=== PATIENT | male | born 1945 | race Caucasian/White ===

== ENCOUNTER 2016-11-26 09:42 | Outpatient (CLI) | payer MEDICARE | END 2016-11-26 09:43 | disposition home or self-care (01) | DX: I50.9 Heart failure, unspecified (principal); N18.3 Chronic kidney disease, stage 3 (moderate); I10 Essential (primary) hypertension; R18.8 Other ascites; K70.31 Alcoholic cirrhosis of liver with ascites ==

== ENCOUNTER 2016-12-03 08:53 | Outpatient (CLI) | payer MEDICARE | END 2016-12-03 08:54 | disposition home or self-care (01) | DX: N18.3 Chronic kidney disease, stage 3 (moderate) (principal); I50.9 Heart failure, unspecified; K70.31 Alcoholic cirrhosis of liver with ascites; R18.8 Other ascites ==

== ENCOUNTER 2016-12-10 10:44 | Outpatient (CLI) | payer MEDICARE | END 2016-12-10 10:45 | disposition home or self-care (01) | DX: R41.0 Disorientation, unspecified (principal); N18.3 Chronic kidney disease, stage 3 (moderate); K70.31 Alcoholic cirrhosis of liver with ascites ==

== ENCOUNTER 2016-12-13 08:19 | Outpatient (CLI) | payer MEDICARE | END 2016-12-13 08:20 | disposition home or self-care (01) | DX: N17.9 Acute kidney failure, unspecified (principal); R41.0 Disorientation, unspecified; N18.3 Chronic kidney disease, stage 3 (moderate); K70.31 Alcoholic cirrhosis of liver with ascites ==

== ENCOUNTER 2016-12-13 18:37 | Inpatient (IN) | payer MEDICARE ==
[2016-12-13] MEDS ORDERED: INSULIN REGULAR HUMAN 100 UNIT/1 ML 10 ML MDV SUBQ STA (20:00)
[2016-12-13] MEDS ORDERED: DEXTROSE 50% ABBOJECT 25 GM/50 ML SYRINGE IVP STA (20:00)
[2016-12-13] MEDS ORDERED: SODIUM CHLORIDE 0.9% 1,000 ML IV ONE (20:00)
[2016-12-13] MEDS ORDERED: INSULIN REGULAR HUMAN 100 UNIT/1 ML 10 ML MDV ONE (20:12)
[2016-12-13] MEDS ORDERED: DEXTROSE 50% ABBOJECT 25 GM/50 ML SYRINGE ONE (20:12)
[2016-12-13] MEDS ORDERED: INSULIN REGULAR HUMAN 100 UNIT/1 ML 10 ML MDV IVP STA (20:14)
[2016-12-13] MEDS: SODIUM CHLORIDE 0.9% 1,000 ML IV ONE (21:12)
[2016-12-13] MEDS ORDERED: ONDANSETRON ODT 4 MG TABLET TL PRN (21:34)
[2016-12-13] MEDS ORDERED: MORPHINE 2 MG/ML SYRINGE IVP PRN (21:34)
[2016-12-13] MEDS ORDERED: ONDANSETRON 4 MG/2 ML VIAL IVP PRN (21:34)
[2016-12-13] MEDS ORDERED: LACTULOSE 10 GM/15 ML BOTTLE PO SCH (22:00)
[2016-12-13] MEDS ORDERED: diphenhydrAMINE INJ 50 MG/ML VIAL IVP STA (22:11)
[2016-12-13] MEDS ORDERED: diphenhydrAMINE INJ 50 MG/ML VIAL ONE (22:16)
[2016-12-14] MEDS: SODIUM CHLORIDE 0.9% 1,000 ML IV ONE (00:40)
[2016-12-14] MEDS: PANTOPRAZOLE 40 MG VIAL IVP SCH ×3 (00:40→16:47)
[2016-12-14] MEDS ORDERED: LACTULOSE 10 GM /15 ML UDC ONE (01:17)
[2016-12-14] MEDS: LACTULOSE 10 GM/15 ML BOTTLE PR SCH ×2 (01:41→08:08)
[2016-12-14] MEDS: rifAXIMin 550 MG TABLET PO SCH ×3 (01:42→21:40)
[2016-12-14] MEDS: SODIUM CHLORIDE FLUSH 0.9% 10 ML SYRINGE IVP SCH ×4 (01:43→22:40)
[2016-12-14] MEDS: cloNIDine 0.1 MG TABLET PO SCH ×3 (06:29→21:40)
[2016-12-14] MEDS: SPIRONOLACTONE 25 MG TABLET PO SCH (10:18)
[2016-12-14] MEDS: LOSARTAN 50 MG TABLET PO SCH (10:21)
[2016-12-14] MEDS: METOPROLOL TARTRATE 25 MG TABLET PO SCH (10:23)
[2016-12-14] MEDS: POLYETHYLENE GLYCOL 3350 17 GM PACKET PO SCH (10:24)
[2016-12-14] MEDS: SODIUM CHLORIDE FLUSH 0.9% 10 ML SYRINGE IVP PRN ×2 (11:04→16:47)
[2016-12-14] MEDS: SODIUM CHLORIDE 0.9% 1,000 ML IV SCH ×2 (13:12→23:16)
[2016-12-14] MEDS: LACTULOSE 10 GM/15 ML BOTTLE PO SCH ×2 (15:38→21:40)
[2016-12-14] MEDS ORDERED: amLODIPine 5 MG TABLET PO SCH (23:45)
[2016-12-15] MEDS ORDERED: amLODIPine 5 MG TABLET ONE ×2 (01:27→01:28)
[2016-12-15] MEDS ORDERED: FUROSEMIDE 40 MG TABLET ONE (18:04)
[2016-12-15] MEDS: SODIUM CHLORIDE 0.9% 1,000 ML IV SCH ×3 (18:05→21:56)
[2016-12-15] MEDS: LACTULOSE 10 GM/15 ML BOTTLE PO SCH ×3 (18:05→21:45)
[2016-12-15] MEDS: cloNIDine 0.1 MG TABLET PO SCH ×3 (18:05→21:42)
[2016-12-15] MEDS: PANTOPRAZOLE 40 MG VIAL IVP SCH ×2 (18:06→18:07)
[2016-12-15] MEDS: LOSARTAN 50 MG TABLET PO SCH (18:06)
[2016-12-15] MEDS: POLYETHYLENE GLYCOL 3350 17 GM PACKET PO SCH (18:06)
[2016-12-15] MEDS: METOPROLOL TARTRATE 25 MG TABLET PO SCH (18:06)
[2016-12-15] MEDS: rifAXIMin 550 MG TABLET PO SCH ×2 (18:06→21:42)
[2016-12-15] MEDS: SPIRONOLACTONE 25 MG TABLET PO SCH (18:06)
[2016-12-15] MEDS: SODIUM CHLORIDE FLUSH 0.9% 10 ML SYRINGE IVP SCH ×2 (18:06→18:07)
[2016-12-15] MEDS ORDERED: LACTULOSE 10 GM /15 ML UDC ONE (21:15)
[2016-12-16] MEDS ORDERED: LACTULOSE 10 GM /15 ML UDC ONE (06:10)
[2016-12-16] MEDS: SODIUM CHLORIDE FLUSH 0.9% 10 ML SYRINGE IVP SCH ×4 (06:31→22:19)
[2016-12-16] MEDS: cloNIDine 0.1 MG TABLET PO SCH ×3 (06:33→22:18)
[2016-12-16] MEDS: SODIUM CHLORIDE 0.9% 1,000 ML IV SCH (06:34)
[2016-12-16] MEDS: PANTOPRAZOLE 40 MG VIAL IVP SCH ×2 (06:35→16:04)
[2016-12-16] MEDS: LACTULOSE 10 GM/15 ML BOTTLE PO SCH ×3 (06:35→22:18)
[2016-12-16] MEDS: FUROSEMIDE 40 MG TABLET PO SCH (08:33)
[2016-12-16] MEDS: amLODIPine 5 MG TABLET PO SCH (08:33)
[2016-12-16] MEDS: POLYETHYLENE GLYCOL 3350 17 GM PACKET PO SCH (08:34)
[2016-12-16] MEDS: SPIRONOLACTONE 25 MG TABLET PO SCH (08:34)
[2016-12-16] MEDS: rifAXIMin 550 MG TABLET PO SCH ×2 (08:34→22:18)
[2016-12-16] MEDS: LOSARTAN 50 MG TABLET PO SCH (08:34)
[2016-12-16] MEDS: METOPROLOL TARTRATE 25 MG TABLET PO SCH (08:34)
[2016-12-16] MEDS ORDERED: INSULIN REGULAR HUMAN 100 UNIT/1 ML 10 ML MDV IVP ONE (12:30)
[2016-12-16] MEDS ORDERED: DEXTROSE 50% ABBOJECT 25 GM/50 ML SYRINGE IVP ONE (12:30)
[2016-12-16] MEDS: SODIUM BICARBONATE 100 MEQ in DEXTROSE 5% 1,000 ML IV SCH (12:58)
[2016-12-17] MEDS: SODIUM BICARBONATE 100 MEQ in DEXTROSE 5% 1,000 ML IV SCH ×2 (00:02→10:58)
[2016-12-17] MEDS: cloNIDine 0.1 MG TABLET PO SCH (06:51)
[2016-12-17] MEDS: SODIUM CHLORIDE FLUSH 0.9% 10 ML SYRINGE IVP SCH (06:51)
[2016-12-17] MEDS: PANTOPRAZOLE 40 MG VIAL IVP SCH (06:51)
[2016-12-17] MEDS: SPIRONOLACTONE 25 MG TABLET PO SCH (08:28)
[2016-12-17] MEDS: FUROSEMIDE 40 MG TABLET PO SCH (08:28)
[2016-12-17] MEDS: amLODIPine 5 MG TABLET PO SCH (08:28)
[2016-12-17] MEDS: LOSARTAN 50 MG TABLET PO SCH (08:28)
[2016-12-17] MEDS: POLYETHYLENE GLYCOL 3350 17 GM PACKET PO SCH (08:29)
[2016-12-17] MEDS: METOPROLOL TARTRATE 25 MG TABLET PO SCH (08:29)
[2016-12-17] MEDS: LACTULOSE 10 GM/15 ML BOTTLE PO SCH (08:30)
[2016-12-17] MEDS: rifAXIMin 550 MG TABLET PO SCH (08:51)
== END 2016-12-17 11:25 | disposition home or self-care (01) | DRG 441 ==
DX: K72.90 Hepatic failure, unspecified without coma (principal); K76.7 Hepatorenal syndrome; E87.2 Acidosis; I12.9 Hypertensive chronic kidney disease with stage 1 through stage 4 chronic kidney disease, or unspecified chronic kidney disease; N18.9 Chronic kidney disease, unspecified; I25.2 Old myocardial infarction; F17.200 Nicotine dependence, unspecified, uncomplicated; N17.9 Acute kidney failure, unspecified; I13.0 Hypertensive heart and chronic kidney disease with heart failure and stage 1 through stage 4 chronic kidney disease, or unspecified chronic kidney disease; I50.30 Unspecified diastolic (congestive) heart failure; T47.3X6A Underdosing of saline and osmotic laxatives, initial encounter; Z91.138 Patient's unintentional underdosing of medication regimen for other reason; E87.5 Hyperkalemia; N18.3 Chronic kidney disease, stage 3 (moderate); K70.31 Alcoholic cirrhosis of liver with ascites; I48.91 Unspecified atrial fibrillation; I71.4 Abdominal aortic aneurysm, without rupture; I25.10 Atherosclerotic heart disease of native coronary artery without angina pectoris; Z66 Do not resuscitate; Z95.5 Presence of coronary angioplasty implant and graft; Z87.898 Personal history of other specified conditions; Z85.828 Personal history of other malignant neoplasm of skin; Z87.891 Personal history of nicotine dependence; Z91.81 History of falling; R41.0 Disorientation, unspecified

== ENCOUNTER 2016-12-29 | Outpatient (CLI) | payer MEDICARE | END 2016-12-29 08:13 | disposition home or self-care (01) | DX: E87.5 Hyperkalemia (principal) ==

== ENCOUNTER 2016-12-31 09:40 | Outpatient (CLI) | payer MEDICARE | END 2016-12-31 23:59 | DX: E87.5 Hyperkalemia (principal) ==

== ENCOUNTER 2017-01-01 11:33 | Emergency (ER) | payer MEDICARE ==
[2017-01-01] MEDS ORDERED: SODIUM POLYSTYRENE SULFONATE 15 GM/60 ML BOTTLE PO STA (13:00)
[2017-01-01] MEDS ORDERED: SODIUM POLYSTYRENE SULFONATE 15 GM/60 ML BOTTLE ONE (13:03)
== END 2017-01-01 13:41 | disposition home or self-care (01) ==
DX: E87.5 Hyperkalemia (principal); R00.1 Bradycardia, unspecified; I12.9 Hypertensive chronic kidney disease with stage 1 through stage 4 chronic kidney disease, or unspecified chronic kidney disease; N18.9 Chronic kidney disease, unspecified; F17.200 Nicotine dependence, unspecified, uncomplicated
CPT/HCPCS: 36415; 80048; 93005; 93010; 99284; A9270

== ENCOUNTER 2017-01-02 10:48 | Outpatient (CLI) | payer MEDICARE | END 2017-01-02 10:49 | disposition home or self-care (01) | DX: E87.5 Hyperkalemia (principal) ==

== ENCOUNTER 2017-01-09 08:34 | Outpatient (CLI) | payer MEDICARE | END 2017-01-09 08:35 | disposition home or self-care (01) | DX: N17.9 Acute kidney failure, unspecified (principal); N18.9 Chronic kidney disease, unspecified ==

== ENCOUNTER 2017-01-30 08:25 | Outpatient (CLI) | payer MEDICARE | END 2017-01-30 08:26 | disposition home or self-care (01) | DX: N17.9 Acute kidney failure, unspecified (principal); N18.9 Chronic kidney disease, unspecified; I12.9 Hypertensive chronic kidney disease with stage 1 through stage 4 chronic kidney disease, or unspecified chronic kidney disease; K70.31 Alcoholic cirrhosis of liver with ascites ==

== ENCOUNTER 2017-02-13 18:17 | Outpatient (CLI) | payer MEDICARE | END 2017-02-13 18:18 | disposition short-term general hospital (02) | DX: R25.1 Tremor, unspecified (principal) | CPT/HCPCS: A0170; A0425; A0427 ==

== ENCOUNTER 2017-02-23 08:00 | Outpatient (CLI) | payer MEDICARE | END 2017-02-23 23:59 | disposition home or self-care (01) | DX: K52.1 Toxic gastroenteritis and colitis (principal) ==

== ENCOUNTER 2017-03-25 09:18 | Outpatient (CLI) | payer MEDICARE | END 2017-03-25 23:59 | DX: N18.3 Chronic kidney disease, stage 3 (moderate) (principal) ==

== ENCOUNTER 2017-05-11 08:19 | Outpatient (CLI) | payer MEDICARE ==
--- NOTE | 2017-05-11 20:59 | Ultrasound Report ---
EXAM: AORTIC DOPPLER ULTRASOUND EXAM DATE: 05/11/2017 08:49 AM. CLINICAL HISTORY: Abdominal aortic aneurysm COMPARISON: 06/07/2016 and 05/19/2015. TECHNIQUE: Real-time sonographic imaging of retroperitoneal vascular structures, including color-flow , Doppler flow and spectral analysis was performed by the head sugar reprocess operator. Multiple account representative static images were saved for review. FINDINGS: The abdominal aorta was adequately visualized. AORTA Proximal: Sagittal AP plane measurement 2.7 cm, previously 2.1 cm on 06/07/2016 and 2.5 cm on 015. Mid: Transverse plane measurements 2.2 x 2.2 cm, previously 2.8 x 2.3 cm on 06/07/2016 and 2.2 x 2.2 cm on 05/19/2015. Distal: Transverse plane measurements 4.4 x 4.4 cm, previously 4.2 x 4.0 cm on 06/07/2016 and 4.3 x 4 .3 cm on 05/19/2015. Interval increased mural thrombus, with narrowing of the lumen to 2.8 x 2.5 cm. ILIACS: Right iliac: Transverse plane measurement 1.1 x 1.1 cm, previously 1.0 x 0.9 cm on 06/07/2016 at and 1.0 x 1.0 cm on 05/19/2015. Left iliac: Transverse plane measurement 1.4 x 1.2 cm, previously 1.2 x 1.0 cm on 06/07/2016 and 1.2 x 1.2 cm on 05/19/2015. IMPRESSION: Allowing for differences in technique, no significant interval change in size of distal a bdominal aortic aneurysm. Interval increased mural thrombus. [facility] Referring Provider Line: [phone] SITE ID: [id number]
== END 2017-05-11 08:20 | disposition home or self-care (01) ==
LOC: DI 08:19
PROVIDERS: ATTEND Nurse Practitioner Family
DX: I71.4 Abdominal aortic aneurysm, without rupture (principal)
CPT/HCPCS: 76775

== ENCOUNTER 2018-02-24 08:00 | Outpatient (CLI) | payer MEDICARE ==
[2018-02-24 18:53] LABS: BILIRUBIN,DIRECT 0.1 mg/dL (0.1-0.5); BILIRUBIN,TOTAL 0.6 mg/dL (0.2-1.0); TOTAL PROTEIN 7.5 g/dL (6.7-8.2)
== END 2018-02-24 08:01 | disposition home or self-care (01) ==
LOC: LAB.S 08:00
PROVIDERS: ATTEND Nurse Practitioner Family
DX: K70.31 Alcoholic cirrhosis of liver with ascites (principal)
CPT/HCPCS: 36415; 80076; 82105

== ENCOUNTER 2019-01-05 12:57 | Inpatient (IN) | payer MEDICARE ==
--- NOTE | 2019-01-05 14:10 | XRAY Report ---
Reason: SOA Procedure Date: 01/05/2019 Accession Number: [id number] / [id number] Procedure: XR - Chest 2 View X-Ray CPT Code: 03153 FULL RESULT: EXAM: CHEST RADIOGRAPHY EXAM DATE: 01/05/2019 01:55 PM. CLINICAL HISTORY: SOA. COMPARISON: Chest 1 view 12/13/2016 8:18 PM. TECHNIQUE: 2 views. FINDINGS: Lungs/Pleura: Interval development of a small right pleural effusion. Aerated portions of both lungs are clear with consolidation obscured by the small pleural effusion not evaluated. No pneumothorax is seen. Mediastinum: Heart and mediastinal contour are stable including calcification of the aortic arch. Other: None. IMPRESSION: Interval development of right pleural effusion masking the right lung base. [facility]
[2019-01-05] MEDS ORDERED: ALBUTEROL NEB 2.5 MG/3 ML INH STA (14:34)
--- NOTE | 2019-01-05 14:39 | ED Physician Documentation ---
PD HPI DYSPNEA - Stated complaint Stated Complaint: SOA/ALLERGIC REACTION - Chief complaint Chief Complaint: Resp - History obtained from History obtained from: Patient, Family - History of Present Illness Timing - onset: Last night (Since last night he has been short of breath with clear sputum, there is no associated chest pain or pedal edema. He does have a history of coronary disease status post remote stenting and CHF. He denies any fevers. He has a long history of smoking and quit about a year ago but denies a formal diagnosis of emphysema or COPD.) Recently seen: Clinic (He has a rash on his hands and he was seen in the Dermatology clinic. He was started on permethrin and Bactrim 2 days ago when he feels like the Bactrim may be causative. He is never been on Bactrim before. There is no new rash and he denies facial or oropharyngeal swelling or other symptoms of allergy.) Review of Systems Ten Systems: 10 systems reviewed and negative Constitutional: denies: Fever, Chills Throat: denies: Sore throat Cardiac: denies: Chest pain / pressure, Palpitations, Pedal edema, Calf pain Respiratory: reports: Dyspnea, Cough. denies: Hemoptysis, Wheezing PD PAST MEDICAL HISTORY - Past Medical History Cardiovascular: Congestive heart failure, Hypertension, [place] GI: Cirrhosis Other Past Medical History: on lactulose chronically for liver failure. CKD-4, no HD. - Past Surgical History Past Surgical History: Yes Cardiovascular: AAA - Present Medications Home Medications: Ambulatory Orders Medication Instructions Recorded Confirmed Furosemide [Lasix] 40 mg PO DAILY 12/13/16 01/01/17 Lactulose 15 - 30 ml PO BID 12/13/16 01/01/17 Losartan [Cozaar] 100 mg PO DAILY 12/13/16 01/01/17 Metoprolol Tartrate 12.5 mg PO BID 12/13/16 01/01/17 cloNIDine [Catapres] 0.2 mg PO TID 12/13/16 01/01/17 Albuterol Sulf [Ventolin Hfa 2 puffs INH Q4H PRN 12/14/16 01/01/17 Inhaler] Sod Polystyrene Sulf. [Kayexalate] 15 gm PO Q6H #1 bottle 01/01/17 - Allergies Allergies/Adverse Reactions: Allergies Allergy/AdvReac Type Severity Reaction Status Date / Time hydralazine Allergy Intermediate Rash Verified 01/05/19 13:21 - Social History Does the pt smoke?: Yes Smoking Status: Current every day smoker Does the pt drink ETOH?: Yes Does the pt have substance abuse?: No - Immunizations Immunizations are current?: No PD ED PE NORMAL - Vitals Vital signs reviewed: Yes - General General: Alert and oriented X 3, No acute distress - HEENT HEENT: PERRL, EOMI - Neck Neck: Supple, no meningeal sign, No bony TTP - Cardiac Cardiac: RRR, Other (3 out of 6 decrescendo early systolic murmur heard best at the left midsternal border) - Respiratory Respiratory: Other (Slightly labored, noted to be hypoxic, decreased at the right base and diminished throughout) - Abdomen Abdomen: Soft, Non tender - Back Back: No CVA TTP, No spinal TTP - Derm Derm: Normal color, Warm and dry - Extremities Extremities: No edema, No calf tenderness / cord - Neuro Neuro: Alert and oriented X 3, Normal speech Results - Vitals Vitals: Vital Signs - 24 hr 01/05/19 01/05/19 01/05/19 13:19 14:05 14:46 Temperature 37.2 C Heart Rate 67 62 Respiratory 18 17 Rate Blood Pressure 148/61 H O2 Saturation 90 L 94 01/05/19 15:13 Temperature Heart Rate 65 Respiratory 18 Rate Blood Pressure 138/58 H O2 Saturation 92 Oxygen O2 Source Nasal cannula - EKG (time done) 1318 Rate: Rate (enter#) (62) Rhythm: NSR [place]: Normal Intervals: Prolonged [place] Ischemia: Other (He has LVH with anterior ST elevation due to strain, this is unchanged from prior EKG dated December 13, 2016. At that time he also had inverted T waves in 1, L, V5 and V6 which have since resolved.) - Labs Labs: Laboratory Tests 01/05/19 01/05/19 01/05/19 14:44 14:44 14:44 WBC 7.7 RBC 3.52 L Hgb 11.6 L Hct 34.2 L MCV 97.1 H MCH 32.9 H MCHC 33.8 RDW 14.7 Plt Count 151 MPV 8.7 Neut # (Auto) 6.2 Lymph # (Auto) 0.7 L Cass # (Auto) 0.6 Eos # (Auto) 0.1 Baso # (Auto) 0.1 Absolute Nucleated RBC 0.00 Nucleated RBC % 0.0 Sodium 133 L Potassium 4.3 Chloride 104 Carbon Dioxide 18 L Anion Gap 11.0 BUN 32 H Creatinine 2.9 H Estimated GFR (MDRD) 21 L Glucose 108 H Calcium 8.7 Total Bilirubin 0.9 AST 30 ALT 19 Alkaline Phosphatase 61 Troponin I 0.06 B-Natriuretic Peptide Total Protein 7.4 Albumin 3.6 Globulin 3.8 Albumin/Globulin Ratio 0.9 L Lipase 44 01/05/19 14:44 WBC RBC Hgb Hct MCV MCH MCHC RDW Plt Count MPV Neut # (Auto) Lymph # (Auto) Cass # (Auto) Eos # (Auto) Baso # (Auto) Absolute Nucleated RBC Nucleated RBC % Sodium Potassium Chloride Carbon Dioxide Anion Gap BUN Creatinine Estimated GFR (MDRD) Glucose Calcium Total Bilirubin AST ALT Alkaline Phosphatase Troponin I B-Natriuretic Peptide 1919 H Total Protein Albumin Globulin Albumin/Globulin Ratio Lipase PD MEDICAL DECISION MAKING - ED course ED course: This is a 73-year-old gentleman with history of coronary disease, CHF who presents with inexplicable shortness of breath that started suddenly last night. Could be a combination of COPD or CHF noting his BNP higher than normal. His renal insufficiency is also worse than in the past. He does have a murmur which he thinks is old but it is quite loud. He does not appear fluid overloaded. PE is also on the differential but cannot do a pulmonary angiogram given his renal function. Echo and VQ scan ordered, given persistent hypoxemia call to the hospitalist for admission at 3:40 PM. I called the pharmacist to clarify Lovenox dosing in the setting of renal failure. Departure - Departure Disposition: 66 [facility] DC/Xfer Clinical Impression: Chronic renal failure Qualifiers: Chronic kidney disease stage: stage 4 (severe) Qualified Code(s): N18.4 - Chronic kidney disease, stage 4 (severe) HTN (hypertension) Qualifiers: Hypertension type: essential hypertension Qualified Code(s): I10 - Essential (primary) hypertension COPD (chronic obstructive pulmonary disease) Qualifiers: COPD type: unspecified COPD Qualified Code(s): J44.9 - Chronic obstructive pulmonary disease, unspecified Dyspnea Qualifiers: Dyspnea type: shortness of breath Qualified Code(s): R06.02 - Shortness of breath; R06.00 - Dyspnea, unspecified; R06.01 - Orthopnea Congestive heart failure Qualifiers: Heart failure type: unspecified Heart failure chronicity: acute on chronic Qualified Code(s): I50.9 - Heart failure, unspecified Condition: Serious
[2019-01-05 14:49] LABS: BASOPHILS # (AUTO) 0.1 10^3/uL (0.0-0.1); BASOPHILS % (AUTO) 0.8 %; EOSINOPHILS # (AUTO) 0.1 10^3/uL (0.0-0.7); EOSINOPHILS % (AUTO) 1.6 %; HGB - HEMOGLOBIN 11.6 g/dL (14.0-18.0); LYMPHOCYTES # (AUTO) 0.7 10^3/uL (1.5-3.5); MEAN CORPUSCULAR HEMOGLOBIN 32.9 pg (27.0-31.0); MEAN CORPUSCULAR HGB CONC 33.8 g/dL (32.0-36.0); MEAN CORPUSCULAR VOLUME 97.1 fL (80.0-94.0); MEAN PLATELET VOLUME 8.7 fL (7.4-11.4); MONOCYTES # (AUTO) 0.6 10^3/uL (0.0-1.0); MONOCYTES % (AUTO) 7.8 %; NEUTROPHILS # (AUTO) 6.2 10^3/uL (1.5-6.6); NEUTROPHILS % (AUTO) 80.8 %; PLT - PLATELET COUNT 151 10^3/uL (130-450); RED BLOOD COUNT 3.52 10^6/uL (4.70-6.10); RED CELL DISTRIBUTION WIDTH 14.7 % (12.0-15.0); WHITE BLOOD COUNT 7.7 x10^3/uL (4.8-10.8)
[2019-01-05] MEDS ORDERED: IOVERSOL 320 100 ML VIAL IVP ONE (14:53)
[2019-01-05 15:04] LABS: ALBUMIN 3.6 g/dL (3.2-5.5); ALBUMIN/GLOBULIN RATIO 0.9 (1.0-2.2); BILIRUBIN,TOTAL 0.9 mg/dL (0.2-1.0); CALCIUM 8.7 mg/dL (8.5-10.3); CREATININE 2.9 mg/dL (0.6-1.2); TOTAL PROTEIN 7.4 g/dL (6.7-8.2)
[2019-01-05] MEDS ORDERED: ENOXAPARIN 80 MG/0.8 ML SYRINGE SUBQ STA (15:42)
[2019-01-05] MEDS ORDERED: ACETAMINOPHEN 325 MG TABLET PO PRN (16:10)
[2019-01-05] MEDS ORDERED: ONDANSETRON 4 MG/2 ML VIAL IVP PRN (16:10)
[2019-01-05] MEDS ORDERED: TEMAZEPAM 15 MG CAPSULE PO PRN (16:10)
[2019-01-05] MEDS ORDERED: SODIUM CHLORIDE FLUSH 0.9% 10 ML SYRINGE IVP PRN (16:10)
--- NOTE | 2019-01-05 16:30 | HISTORY & PHYSICAL EXAMINATION ---
Chief Complaint - Chief Complaint Chief Complaint: shortness of breath, allergic reaction History of Present Illness - Admitted From Admitted From:: ED - History Obtained From Records Reviewed: yes History obtained from: chart review, patient Exam Limitations: none - History of Present Illness HPI Comment/Other: Salvador Higgins is a 73-year old male with a past medical history of alcoholic liver disease, hypertension, CAD, AAA, [place], COPD, heavy smoking, numerous skin cancers, depression, nocturia, BPH, social isolation, medical noncompliance and insomnia. History - Past Medical History Cardiovascular: reports: Congestive heart failure, Hypertension, [place] GI: reports: Cirrhosis MRSA Hx?: No Other Past Medical History: on lactulose chronically for liver failure. CKD-4, no HD. - Past Surgical History Cardiovascular: reports: AAA Meds/Allgy - Home Medications Home Medications: Ambulatory Orders Medication Instructions Recorded Confirmed Furosemide [Lasix] 40 mg PO DAILY 12/13/16 01/05/19 Lactulose 15 - 30 ml PO BID 12/13/16 01/05/19 cloNIDine [Catapres] 0.1 mg PO TID 12/13/16 01/05/19 Albuterol Sulf [Ventolin Hfa 2 puffs INH Q4H PRN 12/14/16 01/05/19 Inhaler] Cholecalciferol (Vitamin D3) 2,000 unit PO DAILY 01/05/19 01/05/19 [Vitamin D] amLODIPine [Norvasc] 10 mg PO DAILY 01/05/19 01/05/19 - Allergies Allergies/Adverse Reactions: Allergies Allergy/AdvReac Type Severity Reaction Status Date / Time hydralazine Allergy Intermediate Rash Verified 01/05/19 13:21 Exam - Vital Signs Vital Signs: Vital Signs x48h Temp Pulse Resp BP Pulse Ox 01/05/19 16:17 36.9 C 66 18 136/63 H 92 01/05/19 15:13 65 18 138/58 H 92 01/05/19 14:46 62 17 01/05/19 14:05 94 01/05/19 13:19 37.2 C 67 18 148/61 H 90 L Conclusion/Plan - Problem List (2) COPD (chronic obstructive pulmonary disease) Qualifiers: COPD type: unspecified COPD Qualified Code(s): J44.9 - Chronic obstructive pulmonary disease, unspecified - Lab Results Fish Bones: 01/05/19 14:44 01/05/19 14:44 Core Measures - Anticipated LOS I expect patient to be DC'd or transferred within 96 hours.: Yes - DVT/VTE - Prophylaxis VTE/DVT Device ordered at admit?: Yes
[2019-01-05] MEDS ORDERED: IPRATROPIUM/ALBUTEROL 3 ML NEB INH PRN (18:16)
[2019-01-05] MEDS ORDERED: SODIUM CHLORIDE 0.9% 500 ML IV ONE (18:16)
[2019-01-05] MEDS ORDERED: guaiFENesin/CODEINE 5 ML UDC PO PRN (18:17)
[2019-01-05] MEDS: SODIUM CHLORIDE FLUSH 0.9% 10 ML SYRINGE IVP SCH (19:09)
[2019-01-05] MEDS: IPRATROPIUM/ALBUTEROL 3 ML NEB INH SCH (20:48)
[2019-01-05] MEDS ORDERED: FUROSEMIDE 40 MG/4 ML VIAL IVP STA (20:49)
--- NOTE | 2019-01-05 20:55 | XRAY Report ---
Reason: worsening dyspnea Procedure Date: 01/05/2019 Accession Number: [id number] / [id number] Procedure: XR - Chest 1 View X-Ray CPT Code: 34717 FULL RESULT: EXAM: CHEST RADIOGRAPHY EXAM DATE: 01/05/2019 08:45 PM. CLINICAL HISTORY: Worsening dyspnea. COMPARISON: CHEST 2 VIEW 01/05/2019 1:43 PM. TECHNIQUE: 1 view. FINDINGS: Lungs/Pleura: Mild/moderate pulmonary edema, increased. No consolidation. No enlarging pleural effusion. No pneumothorax. Mediastinum: Prominent cardiac silhouette. Other: ECG leads overlie the chest. IMPRESSION: Increased pulmonary edema. [facility]
[2019-01-05] MEDS: methylPREDNISolone SUCCINATE 40 MG/ML VIAL IVP SCH (21:28)
--- NOTE | 2019-01-05 22:46 | HISTORY & PHYSICAL EXAMINATION ---
Chief Complaint - Chief Complaint Chief Complaint: acute dyspnea History of Present Illness - Admitted From Admitted From:: [facility] ED - History Obtained From Records Reviewed: yes History obtained from: patient - History of Present Illness HPI Comment/Other: Patient seen at 1910pm on 01/05/19 Patient is a 73 y/o male with PMedHx significant for CAD s/p PCI with stent, CHF, Liver cirrhosis, AAA and CKD who presented to the ED with acute dyspnea. Onset of symptoms was 01/03/19 when he got up to go to the bathroom at night. Ambulating seems to make his symptoms worse. Likewise going from a laying to a sitting position makes it worse. He denies chest pain or wheezing. He sleeps with his bed flat at night and does not use oxygen at home. He denies abd pain, nausea, vomiting or fever. He saw his buckle coverer 2 days ago and was prescribed bactrim. He initially thought his symptoms were due to the medication but they are intermittent, po sitional and lasting a few minutes. In the ED work up revealed a BNP of 1919, progression of MR on 2D echo from trace-mild to moderate-severe, hypokinesis of the basal inferior wall and mid inferolateral wall segment and an EF of 50-55% . During exam, patient became suddenly dysneic with his O2Sat dropping to 90% on N/C. He was given a breathing treatment. Repeat chest xray showed worsening pulmonary edema. He was given 40mg IV of lasix. Within an hour or receiving lasix, he stood up to urinate and suddenly became very dyspneic again. He is being admitted for further work up. History - Past Medical History Cardiovascular: reports: Congestive heart failure, Hypertension, [place] Respiratory: reports: Shortness of breath GI: reports: Cirrhosis : reports: Nocturia HEENT: reports: Other Psych: reports: Depression, Anxiety MRSA Hx?: No Other Past Medical History: on lactulose chronically for liver failure. CKD-4, no HD. AAA - Past Surgical History General: reports: Other (hernia (unspecified), skin cancer excision on head) Cardiovascular: reports: Coronary stent, AAA HEENT: reports: Cataracts, Tonsil/Adenoidectomy - Family & Social History Family History Comment/Other: Extensive family history of malignancy. mother: breast cancer. father: from Parkinson's Living arrangement: At home - Substance History Use: Uses substance without health or social issues: NONE (quit smoking 2018. Had 1ppd X 58 yrs. Quit drinking 4 years ago. No illicit drugs) - POLST Patient has POLST: No POLST Status: DNR Meds/Allgy - Home Medications Home Medications: Ambulatory Orders Medication Instructions Recorded Confirmed Furosemide [Lasix] 40 mg PO DAILY 12/13/16 01/05/19 Lactulose 15 - 30 ml PO BID 12/13/16 01/05/19 cloNIDine [Catapres] 0.1 mg PO TID 12/13/16 01/05/19 Albuterol Sulf [Ventolin Hfa 2 puffs INH Q4H PRN 12/14/16 01/05/19 Inhaler] Cholecalciferol (Vitamin D3) 2,000 unit PO DAILY 01/05/19 01/05/19 [Vitamin D] amLODIPine [Norvasc] 10 mg PO DAILY 01/05/19 01/05/19 - Allergies Allergies/Adverse Reactions: Allergies Allergy/AdvReac Type Severity Reaction Status Date / Time hydralazine Allergy Intermediate Rash Verified 01/05/19 13:21 Review of Systems - Constitutional Constitutional: reports: Chills. denies: Fever, Diaphoresis, Night sweats - Eyes Eyes: denies: Blurred vision, Vision loss, Dipolpia - Ears, Nose & Throat Ears, Nose & Throat: denies: Vertigo, Sore throat, Hoarseness - Cardiovascular Cariovascular: reports: Edema, Exertional dyspnea. denies: Palpitations, Chest pain, Lightheadedness, Syncope - Respiratory Respiratory: reports: Orthopnea, SOB at rest, SOB with exertion. denies: Cough, Wheezing - Gastrointestinal Gastrointestinal: denies: Abdominal pain, Abdominal distention, Constipation, Diarrhea, Nausea, Vomiting - Genitourinary Genitourinary: denies: Dysuria, Frequency, Urgency, Hematuria - Musculoskeletal Musculoskeletal: denies: Muscle pain, Back pain, Stiffness - Integumentary Integumentary: reports: Rash, Pruritis. denies: Lesions, Dryness - Neurological Neurological: denies: General weakness, Headache, Dizziness, Numbness - Psychiatric Psychiatric: denies: Depression, Anxiety - Endocrine Endocrine: denies: Polyuria, Polydypsia - Hematologic/Lymphatic Hematologic/Lymphatic: denies: Anemia, Petechiae Prior Level of Functionality: He is independent of activities of daily living. 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 Exam - Vital Signs Vital Signs: Vital Signs x48h Temp Pulse Pulse Resp BP BP Pulse Ox 01/05/19 20:21 94 01/05/19 20:04 36.7 C 66 20 148/60 H 95 01/05/19 17:59 36.8 C 79 20 95 01/05/19 17:19 36.8 C 79 20 156/46 H 95 01/05/19 16:17 36.9 C 66 18 136/63 H 92 01/05/19 15:13 65 18 138/58 H 92 01/05/19 14:46 62 17 - Physical Exam General Appearance: positive: Alert, Moderate distress (respiratory) Eyes Bilateral: positive: Normal inspection, PERRL, EOMI ENT: positive: ENT inspection nml Neck: positive: Nml inspection, No JVD, Trachea midline Respiratory: positive: Chest non-tender, Breath sounds nml, Rales (especially on right lower lung). negative: No respiratory distress, Wheezes Cardiovascular: positive: Regular rate & rhythm, Diastolic murmur Abdomen: positive: Non-tender, No organomegaly, Nml bowel sounds, No distention Back: positive: Nml inspection Skin: positive: Other (thin skin with several pale appearing patches. Bruising noted especially on upper extremities) Extremities: positive: Pedal edema (trace to +1) Neurologic/Psychiatric: positive: Oriented x3 Conclusion/Plan - Problem List (1) Congestive heart failure Conclusion/Plan: Likely symptomatic manifestation of severe Mitral regurgitation 2D echo showed ERO of 0.42centimeter cubed and a regurgitant volume of 78ml EF 50-55%. Lasix 40mg IV given On lasix 40mg po at home Trend troponin r/o PE Patient give one dose of lovenox 75mg subq V/Q scan pending for the am Qualifiers: Heart failure type: unspecified Heart failure chronicity: acute on chronic Qualified Code(s): I50.9 - Heart failure, unspecified (2) COPD (chronic obstructive pulmonary disease) Conclusion/Plan: On solumedrol tid and duoneb prn Qualifiers: COPD type: unspecified COPD Qualified Code(s): J44.9 - Chronic obstructive pulmonary disease, unspecified (3) HTN (hypertension) Conclusion/Plan: On amlodipine and clonidine Qualifiers: Hypertension type: essential hypertension Qualified Code(s): I10 - Ess ential (primary) hypertension (4) Liver cirrhosis Conclusion/Plan: Likely 2/2 alcohol with Hx of hepatic encephalopathy. On lactulose (5) Chronic renal failure Conclusion/Plan: ?Worsened by heart failure Patient given lasix for heart failure Expect improvement. Will monitor renal function. If worsens will consult nephrology Qualifiers: Chronic kidney disease stage: stage 4 (severe) Qualified Code(s): N18.4 - Chronic kidney disease, stage 4 (severe) - Lab Results Fish Bones: 01/05/19 14:44 01/05/19 14:44 Core Measures - Anticipated LOS I expect patient to be DC'd or transferred within 96 hours.: Yes - DVT/VTE - Prophylaxis VTE/DVT Device ordered at admit?: Yes VTE/DVT Prophylaxis med ordered at admit?: Yes
--- NOTE | 2019-01-06 00:17 | Ultrasound Report ---
Reason: aortic turbulance Procedure Date: 01/05/2019 Accession Number: [id number] / [id number] Procedure: US - Carotid Doppler Complete CPT Code: FULL RESULT: EXAM: BILATERAL CAROTID AND VERTEBRAL ARTERY DUPLEX DOPPLER ULTRASOUND: EXAM DATE: 01/05/2019 11:40 PM CLINICAL HISTORY: Aortic turbulence. COMPARISON: CV 05/02/2015 12:47 PM. TECHNIQUE: Grayscale imaging, color Doppler, and duplex spectral Doppler were used to evaluate the carotid and vertebral arteries bilaterally. Static images were obtained. FINDINGS: There is bilateral calcified plaquing, producing bilateral hemodynamically significant stenoses of the proximal internal carotid arteries, new from previous. Visualization is limited by calcified plaquing. Normal antegrade flow is present in bilateral vertebral arteries. VELOCITIES: Right CCA mid: PSV 93.5 cm/sec CCA dist: PSV 167.5 cm/sec ICA prox: PSV 381.3 cm/sec, EDV 48 cm/sec ICA mid: PSV 149.6 cm/sec, EDV 4.6 cm/sec ICA dist: PSV 81.5 cm/sec, EDV 0.0 cm/sec ECA: PSV 168.9 cm/sec Vert: PSV 164 cm/sec ICA/CCA: 2.3 Left CCA mid: PSV 115.5 cm/sec CCA dist: PSV 128.5 cm/sec ICA prox: PSV 460.6 cm/sec, EDV 0.0 cm/sec ICA mid: PSV 175.1 cm/sec, EDV 0.0 cm/sec ICA dist: PSV 98.1 cm/sec, EDV 19.6 cm/sec ECA: PSV 344 cm/sec Vert: PSV 263.3 cm/sec ICA/CCA: 3.6 ICA diameter stenosis: Right: 50-69% by velocity criteria. Left: 50-69% by velocity criteria. IMPRESSION: 1. Bilateral calcified carotid artery plaquing. 2. Elevated velocities and ratios, compatible with 50-69% luminal diameter stenosis by velocity criteria bilaterally. Visualization is limited by calcified plaquing. 3. Normal antegrade flow is present in bilateral vertebral arteries. General Recommendations: Stenosis =50% ICA - Follow-up ultrasound 6-12 months Stenosis <50% ICA - High Risk Patient with plaque - Follow-up ultrasound 1-2 years Normal Study but High Risk Patient - Follow-up ultrasound 3-5 years Management recommendations and diagnostic criteria are based on current IAC endorsed standards in Carotid Artery Stenosis: Grayscale and Doppler Ultrasound Diagnosis. Validated velocity measurements with angiographic measurements and velocity criteria are extrapolated from diameter data as defined by the Society of Radiologists in Ultrasound Consensus Conference Radiology 2003; 229;340-346. [facility]
[2019-01-06] MEDS: SODIUM CHLORIDE FLUSH 0.9% 10 ML SYRINGE IVP SCH ×2 (01:04→08:59)
[2019-01-06] MEDS: methylPREDNISolone SUCCINATE 40 MG/ML VIAL IVP SCH (06:23)
--- NOTE | 2019-01-06 06:39 | PROVIDER PROGRESS NOTE ---
Current Medications - Current Medications Current Medications: Active Medications Acetaminophen (Tylenol) 650 mg PO Q4HR PRN PRN Reason: Pain 1 to 4 Albuterol/Ipratropium (Duoneb) 3 ml INH Q4HR PRN PRN Reason: Wheezing Last Admin: 01/06/19 01:55 Dose: 3 ml Albuterol/Ipratropium (Duoneb) 3 ml INH RTQID [facility] Last Admin: 01/05/19 20:48 Dose: 3 ml Enoxaparin Sodium (Lovenox) 30 mg SUBQ DAILY [facility] Guaifenesin/Codeine Phosphate (Robitussin Ac) 5 ml PO Q6HR PRN PRN Reason: Cough Last Admin: 01/06/19 02:54 Dose: 5 ml Ondansetron HCl (Zofran Inj) 4 mg IVP Q6HR PRN PRN Reason: Nausea / Vomiting Pantoprazole Sodium (Protonix) 40 mg PO BIDAC [facility] Last Admin: 01/06/19 06:24 Dose: 40 mg Polyethylene Glycol (Miralax) 17 gm PO DAILY [facility] Sodium Chloride (Normal Saline Flush 0.9%) 10 ml IVP PRN PRN PRN Reason: NEEDED PER PROVIDER ORDERS Last Admin: 01/05/19 21:29 Dose: 10 ml Sodium Chloride (Normal Saline Flush 0.9%) 10 ml IVP 0100,0900,1700 [facility] Last Admin: 01/06/19 01:04 Dose: 10 ml Temazepam (Restoril) 15 mg PO QPM PRN PRN Reason: Insomnia Furosemide [Lasix] 40 mg PO DAILY 12/13/16 Lactulose 15 - 30 ml PO BID 12/13/16 cloNIDine [Catapres] 0.1 mg PO TID 12/13/16 Albuterol Sulf [Ventolin Hfa Inhaler] 2 puffs INH Q4H PRN 12/14/16 Cholecalciferol (Vitamin D3) [Vitamin D] 2,000 unit PO DAILY 01/05/19 amLODIPine [Norvasc] 10 mg PO DAILY 01/05/19 Objective - Vital Signs/Intake & Output Vital Signs: Vital Signs x48h Temp Pulse Pulse Resp BP Pulse Ox 01/06/19 05:00 37 C 71 20 141/48 H 96 01/06/19 01:55 72 18 02/19/19 00:08 37 C 74 18 163/54 H 92 Intake & Output: Intake & Output 01/03/19 01/04/19 01/05/19 01/06/19 23:59 23:59 23:59 23:59 Intake Total 820 Output Total 150 175 Balance 670 -175 - Lab Results Fish Bones: 01/05/19 14:44 01/05/19 14:44 Other Labs: Lab Results x24hrs 01/06/19 01/05/19 01/05/19 Range/Units 05:57 19:55 14:44 WBC (4.8-10.8) x10^3/uL RBC (4.70-6.10) 10^6/uL Hgb (14.0-18.0) g/dL Hct (42.0-52.0) % MCV (80.0-94.0) fL MCH (27.0-31.0) pg MCHC (32.0-36.0) g/dL RDW (12.0-15.0) % Plt Count (130-450) 10^3/uL MPV (7.4-11.4) fL Neut # (Auto) (1.5-6.6) 10^3/uL Lymph # (Auto) (1.5-3.5) 10^3/uL Gilliam # (Auto) (0.0-1.0) 10^3/uL Eos # (Auto) (0.0-0.7) 10^3/uL Baso # (Auto) (0.0-0.1) 10^3/uL Absolute Nucleated RBC x10^3/uL Nucleated RBC % /100WBC Sodium (135-145) mmol/L Potassium (3.5-5.0) mmol/L Chloride (101-111) mmol/L Carbon Dioxide (21-32) mmol/L Anion Gap (6-13) BUN (6-20) mg/dL Creatinine (0.6-1.2) mg/dL Estimated GFR (MDRD) (>89) Glucose (70-100) mg/dL Calcium (8.5-10.3) mg/dL Total Bilirubin (0.2-1.0) mg/dL AST (10-42) IU/L ALT (10-60) IU/L Alkaline Phosphatase (42-121) IU/L Troponin I 0.08 0.06 (<0.49) ng/mL B-Natriuretic Peptide 1919 H (5-100) pg/mL Total Protein (6.7-8.2) g/dL Albumin (3.2-5.5) g/dL Globulin (2.1-4.2) g/dL Albumin/Globulin Ratio (1.0-2.2) Lipase (22-51) U/L 01/05/19 01/05/19 01/05/19 Range/Units 14:44 14:44 14:44 WBC 7.7 (4.8-10.8) x10^3/uL RBC 3.52 L (4.70-6.10) 10^6/uL Hgb 11.6 L (14.0-18.0) g/dL Hct 34.2 L (42.0-52.0) % MCV 97.1 H (80.0-94.0) fL MCH 32.9 H (27.0-31.0) pg MCHC 33.8 (32.0-36.0) g/dL RDW 14.7 (12.0-15.0) % Plt Count 151 (130-450) 10^3/uL MPV 8.7 (7.4-11.4) fL Neut # (Auto) 6.2 (1.5-6.6) 10^3/uL Lymph # (Auto) 0.7 L (1.5-3.5) 10^3/uL Gilliam # (Auto) 0.6 (0.0-1.0) 10^3/uL Eos # (Auto) 0.1 (0.0-0.7) 10^3/uL Baso # (Auto) 0.1 (0.0-0.1) 10^3/uL Absolute Nucleated RBC 0.00 x10^3/uL Nucleated RBC % 0.0 /100WBC Sodium 133 L (135-145) mmol/L Potassium 4.3 (3.5-5.0) mmol/L Chloride 104 (101-111) mmol/L Carbon Dioxide 18 L (21-32) mmol/L Anion Gap 11.0 (6-13) BUN 32 H (6-20) mg/dL Creatinine 2.9 H (0.6-1.2) mg/dL Estimated GFR (MDRD) 21 L (>89) Glucose 108 H (70-100) mg/dL Calcium 8.7 (8.5-10.3) mg/dL Total Bilirubin 0.9 (0.2-1.0) mg/dL AST 30 (10-42) IU/L ALT 19 (10-60) IU/L Alkaline Phosphatase 61 (42-121) IU/L Troponin I 0.06 (<0.49) ng/mL B-Natriuretic Peptide (5-100) pg/mL Total Protein 7.4 (6.7-8.2) g/dL Albumin 3.6 (3.2-5.5) g/dL Globulin 3.8 (2.1-4.2) g/dL Albumin/Globulin Ratio 0.9 L (1.0-2.2) Lipase 44 (22-51) U/L - Diagnostic Imaging Diagnostic Imaging Comments: Echocardiogram done 01/05 (c/w 03/2015) Moderate LV enlargement, mild concentric LVH, EF 50-55%, subtle WMA difficult to assess , mild HK inferior , and mid inferiorlateral. Mild , mod pHTN RVSP 58 Severe increaese Left atrial volume index Moderate to Severe MR
[2019-01-06] MEDS ORDERED: PANTOPRAZOLE 40 MG TABLET PO SCH (07:00)
[2019-01-06] MEDS: IPRATROPIUM/ALBUTEROL 3 ML NEB INH SCH ×3 (07:37→15:16)
[2019-01-06] MEDS ORDERED: POLYETHYLENE GLYCOL 3350 17 GM PACKET PO SCH (09:00)
[2019-01-06] MEDS ORDERED: ENOXAPARIN 30 MG/0.3 ML SYRINGE SUBQ SCH (09:00)
[2019-01-06 09:55] LABS: CALCIUM 8.2 mg/dL (8.5-10.3)
--- NOTE | 2019-01-06 12:23 | Nuclear Medicine Report ---
Reason: dyspnea Procedure Date: 01/06/2019 Accession Number: [id number] / [id number] Procedure: NM - Lung Vent/Perf V/Q CPT Code: FULL RESULT: EXAM: VENTILATION/PERFUSION SCAN (V/Q SCAN) EXAM DATE: 01/06/2019 11:24 AM. CLINICAL HISTORY: Dyspnea. COMPARISON: CHEST 1 VIEW 01/05/2019 8:29 PM. TECHNIQUE: Patient was administered 41 mCi of technetium 99m DTPA aerosol by inhalation and 8 standard ventilation images of the lungs were obtained. Next, the patient was injected with 4.3 mCi of technetium 99m MAA intravenously and 8 standard perfusion images of the lungs were obtained. FINDINGS: Ventilation Scan: There is a markedly heterogeneous ventilation pattern with multiple bilateral ventilation defects and central clumping of the aerosolized radiotracer. Perfusion Scan: Perfusion is more homogeneous than ventilation. No mismatched perfusion defects are evident. IMPRESSION: Low to very low probability pattern for acute pulmonary embolism. RADIA
[2019-01-06 13:09] VITALS: BP 148/55
--- NOTE | 2019-01-06 13:30 | Discharge Plan ---
Discharge Plan Disposition: 02 Transfer Acute Care Hosp Condition: Serious Diet: Low Sodium Activity Restrictions: bathroom priv w/ assist Shower Restrictions: No Driving Restrictions: No Weight Bearing: Full Weight No Smoking: If you smoke, Please STOP! Call for help.
--- NOTE | 2019-01-06 13:38 | DISCHARGE SUMMARY ---
Discharge Summary Admit Date: 01/05/19 Discharge Date: 01/06/19 Discharging Provider: Loretta Cabrera Primary Care Provider: a [place] clinic provider Code Status: Do Not Attempt Resuscitation Condition at Discharge: Serious Discharge Disposition: 02 Transfer Acute Care Hosp Discharge Facility Name: [facility] - DIAGNOSES Admission Diagnoses: acute hypoxemic respiratory failure Acute kidney Injury Discharge Diagnoses with Status of Each Condition: Congestive Heart Failure due Moderate to severe Mitral regurgitation (new MR since 03/2015 echo) (See narrative below) Admit BNP 1919 BNP 2168 after diuresis (? contribution of CKD to BNP; holding on further diuresis as below Transferring to [facility] for higher level of care/ cardiology evaluation, ? consideration of Mitral valve replacement Sa02 94% on 3. Liters following diuresis pm of .18; holding off on further diuresis / hemodynamically stable (see below) Patient with significant improvement subjectively Hypertension: on clonidine 0.1 mg tid and amlodipine 5 mg at home continued clonidine to avoid rebound modify as warranted 148/55 1pm 01/06 Acute Kidney Injury on Chronic Kidney Disease stage IV Cr 1.7 01/30/17 (per our records) Cr 2.0 03/25/17 Admit 32/2.9 01/06 AM 38/3.0 (deferred on further diuresis as hemodynamically stable, and exam not c/w significant volume overload) / evaluate at [place] Cirrhosis; reportedly due to ETOH , history of encephalopathy on lactulose stable, compensated not on spironolactone athome/ on lasix 40 mg daily (occasional 80 mg) - HPI History of Present Illness: Please See Dr. Shyam Meza's detailed H/P from night of 01/05 Briefly patient is a 73 yo Male w/ known CAD s/p PCI , stent (followed by Dr Boles/ [facility]), prior history of diasotlic CHF, liver cirrhosis, AAA (deemed inoperable in past), and CKD IV who presented to [facility] ED with progressively worsening dyspnea over 2 weeks. PCP had prescribed albuterol ~ 2 weeks ago / patient noted only modest improvement (+ tobaccco use hx/ quit 1 yr ago, no formal COPD diagnosis) . Endorses orthopnea worsening over ~ 2 wks , ocasional cough of clear sputum, no associated chest pain/ diaphoresisand by 01/03 was acutely dyspneic just getting to bathroom. Not on oxygen at baseline; In the ED, hemodynamically stable, afebrile, HR 60's, BP 148/61, , CXR w/ pulmonary vascular congestion, BNP 1919, EKG withough acute ischiemic changes , LVH, anterior ST elevatieon due to strain/ no change since 11/2016 , "inferior infarct per machine interpretation but 2,3,F q's not in criteria), 1 degree AVB, troponins flat Treated empirically as possible COPd exacerbation, and empirically received lovenox dose if possible PE (could not get CTA due to renal function), but echocardiogram PM of admission demonstrated severe MR, (noted only as trace to mild on 03/2015 echo), markedly elevated Left atrial volume index, RVSP 58 /mod pHTN. Telemetry ; NSR, 1degree block, multifocal PVC's (K 4.1) -CHF/ due to severe MR Patient received 1 dose Lasix 40 mg IVP PM of admission/ Considered additional dose on 01/06, but once labs resulted, BNP and BuN/Cr increased despite pt subjectively somewhat improved (notes able to stand for CXR/VQ imaging / less dyspneic Holding on further diuresis as hemodynamically stable until at [facility] with cardiology eval No cardiology/ cardiac surgery available at [facility]/ transferring to [facility] (appreciate Dr. Singh and service there helping w/ this patients care) for consideration of mitral valve replacement / in setting of comorbid CKD, cirrhosis VQ scan done / very low probability (once MR noted, suspician far higher for severe MR/ CHF as cause for his presentation but VQ had been done; had received single dose of treatment dose lovenox in ED . contiued only as VTE propylaxis dose (renal dosed) - CONSULTS | PROCEDURES Consultations: none, needs cardiology, ? cardiac surgery consults, nephrology(?) Procedures: none - HOSPITAL COURSE Hospital Course: see above - ALLERGIES Allergies/Adverse Reactions: Allergies Allergy/AdvReac Type Severity Reaction Status Date / Time hydralazine Allergy Intermediate Rash Verified 01/05/19 13:21 - MEDICATIONS Home Medications: Ambulatory Orders Medication Instructions Recorded Confirmed Lactulose 15 - 30 ml PO BID 12/13/16 01/05/19 cloNIDine [Catapres] 0.1 mg PO TID 12/13/16 01/05/19 Albuterol Sulf [Ventolin Hfa 2 puffs INH Q4H PRN 12/14/16 01/05/19 Inhaler] Cholecalciferol (Vitamin D3) 2,000 unit PO DAILY 01/05/19 01/05/19 [Vitamin D3] amLODIPine [Norvasc] 10 mg PO DAILY 01/05/19 01/05/19 Enoxaparin [Lovenox] 30 mg SUBQ DAILY syringe 01/06/19 Polyethylene Glycol 3350 [Miralax] 17 gm PO DAILY packet 01/06/19 - PHYSICAL EXAM AT DISCHARGE General Appearance: positive: No acute distress, Other (at time of transfer, lying in bed ~ 30 degrees, no dyspnea at 30 degrees, ) Eyes Bilateral: positive: Normal inspection, EOMI Neck: positive: No JVD Respiratory: positive: Chest non-tender, Other (on 3. liter oximizer (RT had placed patient on 6L, but oxygenating 94% on 3L) At 1pm; clear to auscultation, decreased in bases bilaterally, ) Cardiovascular: positive: Regular rate & rhythm, Systolic murmur (4/6 loudest at apex), Other Abdomen: positive: No organomegaly, Nml bowel sounds, Other (mild HJR appreciable). negative: Tenderness, Hepatomegaly Back: negative: CVA tenderness (R), CVA tenderness (L) Skin: positive: Warm, Dry, Other (golf ball sized soft lipoma back of neck). negative: Diaphoresis Extremities: positive: Other (no edema). negative: No pedal edema, Pedal edema Neurologic/Psychiatric: positive: Oriented x3, Mood/affect nml - LABS Result Diagrams: 01/05/19 14:44 01/06/19 05:57 - DIAGNOSTIC IMAGING Diagnostic Imaging Results Comments: Chest x ray 01/05; Mild to mod pulmonoary edema, no consolidation (before lasix) VQ scan; 01/06 Low to very low probability patternfor acute PE Carotid duplex ; bilateral calcified placquing, >>> bilateral hemodynamically significnat stenoses of proximal ICA's (new from prior) Right 50-69% Left 50-69% - TIME SPENT Time Spent in Discharge (Minutes): 40 (> 40 mins coordinating transfer, dw/ patient)
[2019-01-06] MEDS ORDERED: LACTULOSE 10 GM /15 ML UDC PO SCH (14:00)
[2019-01-06] MEDS ORDERED: cloNIDine 0.1 MG TABLET PO SCH (14:00)
--- NOTE | 2019-01-07 06:43 | Ultrasound Report ---
Reason: w/ VQ scan to eval for PE (CKD cant get CTA) Procedure Date: 01/06/2019 Accession Number: [id number] / [id number] Procedure: US - Duplex Ext Veins Bilateral CPT Code: FULL RESULT: EXAM: BILATERAL LOWER EXTREMITY VENOUS ULTRASOUND EXAM DATE: 01/06/2019 12:56 PM. CLINICAL HISTORY: Shortness of breath. COMPARISON: None. TECHNIQUE: Real-time sonographic vascular imaging was performed by the physical geographer through the lower extremities utilizing both color-flow and Doppler spectral analysis. Multiple medical claims representative static images were saved for review. FINDINGS: Right: Common Femoral Vein (CFV): Normal. CFV-GSV Junction: Normal. Profunda Femoral Vein (PFV): Normal. Femoral Vein (FV) Prox: Normal. Femoral Vein (FV) Mid: Normal. Femoral Vein (FV) Dist: Normal. Popliteal Vein: Normal. Posterior Tibial Veins: Normal. Peroneal Veins: Normal. Left: Common Femoral Vein (CFV): Normal. CFV-GSV Junction: Normal. Profunda Femoral Vein (PFV): Normal. Femoral Vein (FV) Prox: Normal. Femoral Vein (FV) Mid: Normal. Femoral Vein (FV) Dist: Normal. Popliteal Vein: Normal. Posterior Tibial Veins: Normal. Peroneal Veins: Normal. Other: None. IMPRESSION: No evidence for deep venous thrombosis bilaterally. RADIA
== END 2019-01-06 15:29 | disposition short-term general hospital (02) | DRG 306 ==
LOC: ED 12:57 → MS2 16:23
PROVIDERS: ADMIT Nurse Practitioner; ATTEND Nurse Practitioner
DX: I34.0 Nonrheumatic mitral (valve) insufficiency (principal); I50.9 Heart failure, unspecified; I26.99 Other pulmonary embolism without acute cor pulmonale; J44.9 Chronic obstructive pulmonary disease, unspecified; I13.0 Hypertensive heart and chronic kidney disease with heart failure and stage 1 through stage 4 chronic kidney disease, or unspecified chronic kidney disease; I50.32 Chronic diastolic (congestive) heart failure; Z87.891 Personal history of nicotine dependence; I25.2 Old myocardial infarction; N18.4 Chronic kidney disease, stage 4 (severe); N17.9 Acute kidney failure, unspecified; R09.02 Hypoxemia; R06.01 Orthopnea; J44.1 Chronic obstructive pulmonary disease with (acute) exacerbation; Z66 Do not resuscitate; K74.60 Unspecified cirrhosis of liver; I25.10 Atherosclerotic heart disease of native coronary artery without angina pectoris; Z95.5 Presence of coronary angioplasty implant and graft; I71.4 Abdominal aortic aneurysm, without rupture; I44.0 Atrioventricular block, first degree; I51.7 Cardiomegaly; R01.1 Cardiac murmur, unspecified; R35.1 Nocturia; F32.9 Major depressive disorder, single episode, unspecified; F41.9 Anxiety disorder, unspecified; Z85.828 Personal history of other malignant neoplasm of skin
CPT/HCPCS: 36415; 71045; 71046; 78582; 80048; 80053; 83690; 83880; 84484; 85025; 93005; 93306; 93880; 93970; 94640; 94664; 96372; 99283; 99284; 99285

== ENCOUNTER 2019-01-15 09:22 | Outpatient (CLI) | payer MEDICARE | END 2019-01-15 09:23 | disposition short-term general hospital (02) | LOC: EMS 09:22 | PROVIDERS: ATTEND Surgery | DX: R06.02 Shortness of breath (principal) | CPT/HCPCS: A0425; A0427 ==

== ENCOUNTER 2019-08-24 16:40 | Outpatient (CLI) | payer MEDICARE | END 2019-08-24 16:41 | disposition hospice, home (50) | LOC: EMS 16:40 | PROVIDERS: ATTEND Surgery | DX: R53.1 Weakness (principal); R06.00 Dyspnea, unspecified; M25.552 Pain in left hip; Z99.81 Dependence on supplemental oxygen | CPT/HCPCS: A0425; A0428 ==